=== PATIENT | female | born 1930 | race Caucasian/White ===

== ENCOUNTER 2019-09-17 09:03 | Inpatient (IN) ==
--- NOTE | 2019-09-17 09:38 | Emergency Department Note ---
SOB HPI - General Chief Complaint: Shortness of Breath/Dyspnea Stated Complaint: SOB Time Seen by Provider: 09/17/19 09:23 Source: patient, EMS Mode of arrival: EMS Limitations: no limitations - History of Present Illness This patient has had a chronic dry cough for a long time but only recently has developed shortness of breath. She said no chest pain no abdominal pain she had slight nausea this morning and slight diarrhea couple of days ago. No history of COPD or lung disease. - Related Data Home Medications Medication Instructions Recorded Confirmed peg 400-propylene glycol 0.4 %-0.3 1 drp OPHTHALMIC QDAY PRN ml 11/27/14 09/17/19 % eye drops cranberry 400 mg capsule 400 mg PO TID cap 01/02/15 09/17/19 Bifidobacterium infantis 1.5 4 mg PO QDAY 04/02/15 09/17/19 billion cell capsule sodium chloride 1 gram tablet 1 tab PO BID tab 11/29/15 09/17/19 vitamin B complex 1 tab-cap PO QDAY 02/28/16 09/17/19 vit C 250 mg-E 200 unit-zinc 40 1 tab PO BID 06/15/16 09/17/19 mg-copper 1 [id number] capsule denosumab 60 mg/mL subcutaneous 60 mg SUB-Q [id number] 11/30/16 09/17/19 syringe diphenhydrAMINE [Benadryl] 50 mg PO Q4HP PRN 09/17/19 09/17/19 Previous Rx's Medication Instructions Recorded pedi nutrition,iron,lact-free 0.06 1 each PO BID #60 dose 04/02/15 gram-1.5 kcal/mL oral liquid calcium citrate 250 mg 2 tab PO TID 30 Days #180 tab 07/06/16 calcium-vitamin D3 200 unit tablet magnesium oxide 400 mg PO QDAY #90 cap 09/01/17 cyclobenzaprine 5 mg tablet 5 mg PO BID PRN #60 tab 03/28/18 losartan 25 mg tablet 25 mg PO QDAY #30 tab 03/28/18 fentanyl 12 mcg/hr transdermal 12 mcg TOPICAL Q72H #10 patch 04/06/18 patch Allergies Allergy/AdvReac Type Severity Reaction Status Date / Time Amoxicillin [From Augmentin] Allergy Severe Swelling Verified 03/09/18 09:22 of Lip/Tongue/Throat clavulanic acid Allergy Severe Swelling Verified 03/09/18 09:22 [From Augmentin] of Lip/Tongue/Throat flaxseed Allergy Severe Swelling Verified 09/17/19 18:22 of Lip/Tongue/Throat pecan nut Allergy Severe Swelling Verified 03/09/18 09:22 of Lip/Tongue/Throat tree nut Allergy Severe Swelling Verified 09/17/19 18:22 of Lip/Tongue/Throat peanut Allergy Intermediate Rash Verified 09/17/19 09:08 polyester fibers Allergy Intermediate Rash Verified 03/09/18 09:22 wool Allergy Intermediate Rash Verified 03/09/18 09:22 [place] And Derivatives Allergy Unknown Unknown Verified 09/17/19 09:08 sodium sulfate Allergy Unknown Unknown Verified 09/17/19 09:08 Sulfa (Sulfonamide Allergy Unknown Unknown Verified 09/17/19 09:08 Antibiotics) [SULFA (SULFONAMIDE ANTIBIOTICS)] carvedilol AdvReac Intermediate Hypotension Verified 03/09/18 09:22 morphine AdvReac Intermediate Other Verified 03/09/18 09:22 prednisone AdvReac Intermediate Dizziness Verified 09/17/19 18:22 tramadol AdvReac Intermediate Dizziness Verified 03/09/18 09:22 lisinopril AdvReac Mild Cough Verified 09/17/19 18:22 milk AdvReac Mild Unknown Verified 09/17/19 18:22 FOOD PRESERVATIVE Allergy Intermediate Swelling Uncoded 03/09/18 09:22 of Lip/Tongue/Throat Review of Systems All systems ED: reviewed and negative except as stated. Past Medical History - Past Medical History [facility] Narrative: Medical History (Last Reviewed 03/09/18 @ 09:32 by Miriam Santamaria, DNP, STAMPING DIE [employer]Y OUT WORKER) Macular degeneration (Chronic ~12/2015) Closed fracture of pelvis (Chronic) Hyponatremia (Acute) Multiple food allergies (Chronic) Compression fx, lumbar spine (Chronic) Compression fracture of body of thoracic vertebra (Chronic) Allergic rhinitis (Chronic) Hypertension (Chronic) Osteoporosis (Chronic 11/28/13) Right bundle branch block (Chronic) Heart murmur, systolic (Chronic 01/25/14) Mitral regurgitation (Chronic 02/12/14) Insomnia (Chronic) Fatigue (Chronic) Dry eye syndrome (Chronic) Closed compression fracture of body of first lumbar vertebra (Chronic 10/16/13) Basal cell carcinoma of skin of face (Chronic 01/26/12) Back pain (Chronic) Anemia (Chronic) Vitamin D deficiency (Chronic) Diarrhea (Resolved) Dizziness (Resolved) Fracture, pelvis closed (Resolved) Hematuria (Resolved 02/12/14) Sacroiliitis (Resolved) Weakness (Resolved) Weakness (Resolved) Past Surgical History (Last Reviewed 03/09/18 @ 09:32 by Miriam Santamaria, BRAYDEN, STAMPING DIE [employer]Y OUT WORKER) History of appendectomy (Resolved 08/13/05) History of cataract surgery (Resolved 05/26/05) History of colonoscopy (Resolved 11/30/05) History of eye surgery (Resolved) Status post LASIK surgery of both eyes (Resolved 03/02/13) Status post Mohs surgery (Resolved 01/26/12) Family History (Last Reviewed 03/09/18 @ 09:32 by Miriam Santamaria, BRAYDEN, STAMPING [employer] OUT WORKER) Aunt Malignant neoplasm of breast [id number] Malignant neoplasm of colon Unknown Family history of malignant neoplasm Hyperlipidemia Mother Cerebrovascular accident Carcinoma in situ of skin Sister Carcinoma in situ of skin Family history of arthritis Brother Family history of arthritis Carcinoma in situ of skin - Social History smoking status: Never smoker Alcohol use: Reports: None Drug use: Reports: none Physical Exam Limitations: no limitations General appearance: alert Head: atraumatic Eye: Present: normal appearance ENT: Present: normal exam Neck: Present: normal inspection Chest: Present: normal inspection Respiratory: Present: normal lung sounds bilaterally, decreased breath sounds Cardiovascular: Present: regular rate, normal rhythm, normal heart sounds Abdominal: Present: soft. Absent: distention, tenderness Extremities: Absent: pedal edema, pretibial edema Neurological: Present: alert Psychiatric: Present: normal affect Skin: Present: warm, dry Course Vital Signs Temperature 97.5 F 09/17/19 09:08 Pulse Rate 102 H 09/17/19 09:08 Respiratory Rate 20 09/17/19 09:08 Blood Pressure 182/89 09/17/19 09:08 Pulse Oximetry (%) 94 09/17/19 09:08 Temperature 98.6 F 09/18/19 04:01 Pulse Rate 73 09/18/19 04:01 Respiratory Rate 21 09/18/19 04:01 Blood Pressure 133/61 09/18/19 04:01 Pulse Oximetry (%) 98 09/18/19 04:01 Shortness of Breath/Dyspnea - MDM Narrative Medical decision making narrative: Patient's chest x-ray was consistent with congestive heart failure and her BNP was elevated. We gave her 40 mg of Lasix IV and she did have a diuresis but we could not wean her off oxygen and so she was admitted to the hospital - Lab Data Lab results reviewed: Yes I reviewed the patient's lab results. Result diagrams: 09/17/19 19:24 09/18/19 04:34 Lab Results 09/17/19 09/17/19 09/17/19 Range/Units 09:30 09:30 09:30 WBC 10.9 (4.50-11.00) K/mcL RBC 3.94 (3.59-5.38) M/mcL Hgb 11.7 (11.2-15.7) g/dL Hct 34.7 (34.1-44.9) % MCV 88.1 (80.0-100.0) fL MCH 29.7 (26.0-34.0) pg MCHC 33.7 (31.0-36.0) g/dL RDW 11.9 (11.5-14.5) % Plt Count 155 (140-440) K/mcL MPV 9.7 (7.4-10.4) fL Gran % 80.8 H (38.0-78.0) % Lymph % (Auto) 11.6 L (15.5-49.0) % [place] % (Auto) 6.2 (1.0-12.0) % Eos % (Auto) 1.0 (0.0-7.0) % Baso % (Auto) 0.4 (0.0-2.0) % Gran # 8.81 H (1.80-8.00) K/mcL Lymph # (Auto) 1.26 L (1.50-4.80) K/mcL [place] # (Auto) 0.68 (0.10-0.90) K/mcL Eos # (Auto) 0.11 (0.00-0.70) K/mcL Baso # (Auto) 0.04 (0.00-0.30) K/mcL Sodium 125 L (133-145) mmol/L Potassium 4.4 (3.3-5.1) mmol/L Chloride 87 L (96-108) mmol/L Carbon Dioxide 24 (22-30) mmol/L Anion Gap 14.0 (8-16) BUN 15 (8-23) mg/dl Creatinine 0.9 (0.6-1.1) mg/dl GFR Calculation 57 Glucose 150 H (70-105) mg/dL Osmolality (280-300) mOSM/kg Uric Acid (2.5-8.0) mg/dL Calcium 9.3 (8.6-10.4) mg/dl Total Bilirubin 0.5 (0.0-1.0) mg/dL AST 16 (0-37) U/l ALT 9 (0-40) U/l Alkaline Phosphatase 71 (39-117) U/L Troponin T 0.05 H* (0-0.03) ng/ml NT-Pro-B Natriuret Pep 2460.0 H (0-450) pg/ml Total Protein 8.0 (5.9-8.4) gm/dL Albumin 4.0 (3.2-5.2) gm/dL Globulin 4.0 H (2.2-3.7) gm/dL Albumin/Globulin Ratio 1.0 (1.0-2.3) Urine Color Urine Appearance Urine pH (5.0-9.0) Ur Specific Adrian (1.000-1.035) Urine Protein (NEG) mg/dL Urine Glucose (UA) (NEG) mg/dL Urine Ketones (NEG) mg/dL Urine Occult Blood (<0.03) mg/dL Urine Nitrate (NEG) Urine Bilirubin (NEG) mg/dL Urine Urobilinogen (NEG) mg/dL Ur Leukocyte Esterase (NEG) /uL Urine RBC (0-1) /hpf Urine WBC (0-4) /hpf Ur Squamous Epith Cells (0-4) /hpf Urine Bacteria (0) /hpf Urine Mucus (0) /hpf Ur Culture Indicated? Urine Osmolality (80-1000) mOsm/kg Ur Random Sodium mmol/L 09/17/19 09/17/19 09/17/19 Range/Units 09:30 17:10 17:10 WBC (4.50-11.00) K/mcL RBC (3.59-5.38) M/mcL Hgb (11.2-15.7) g/dL Hct (34.1-44.9) % MCV (80.0-100.0) fL MCH (26.0-34.0) pg MCHC (31.0-36.0) g/dL RDW (11.5-14.5) % Plt Count (140-440) K/mcL MPV (7.4-10.4) fL Gran % (38.0-78.0) % Lymph % (Auto) (15.5-49.0) % [place] % (Auto) (1.0-12.0) % Eos % (Auto) (0.0-7.0) % Baso % (Auto) (0.0-2.0) % Gran # (1.80-8.00) K/mcL Lymph # (Auto) (1.50-4.80) K/mcL [place] # (Auto) (0.10-0.90) K/mcL Eos # (Auto) (0.00-0.70) K/mcL Baso # (Auto) (0.00-0.30) K/mcL Sodium (133-145) mmol/L Potassium (3.3-5.1) mmol/L Chloride (96-108) mmol/L Carbon Dioxide (22-30) mmol/L Anion Gap (8-16) BUN (8-23) mg/dl Creatinine (0.6-1.1) mg/dl GFR Calculation Glucose (70-105) mg/dL Osmolality 268 L (280-300) mOSM/kg Uric Acid 3.2 (2.5-8.0) mg/dL Calcium (8.6-10.4) mg/dl Total Bilirubin (0.0-1.0) mg/dL AST (0-37) U/l ALT (0-40) U/l Alkaline Phosphatase (39-117) U/L Troponin T (0-0.03) ng/ml NT-Pro-B Natriuret Pep (0-450) pg/ml Total Protein (5.9-8.4) gm/dL Albumin (3.2-5.2) gm/dL Globulin (2.2-3.7) gm/dL Albumin/Globulin Ratio (1.0-2.3) Urine Color Straw Urine Appearance Clear Urine pH 5.0 (5.0-9.0) Ur Specific Adrian 1.008 (1.000-1.035) Urine Protein Neg (NEG) mg/dL Urine Glucose (UA) Negative (NEG) mg/dL Urine Ketones Neg (NEG) mg/dL Urine Occult Blood Neg (<0.03) mg/dL Urine Nitrate Neg (NEG) Urine Bilirubin Neg (NEG) mg/dL Urine Urobilinogen Neg (NEG) mg/dL Ur Leukocyte Esterase Neg (NEG) /uL Urine RBC < 1 (0-1) /hpf Urine WBC 1 (0-4) /hpf Ur Squamous Epith Cells 0 (0-4) /hpf Urine Bacteria 0 (0) /hpf Urine Mucus Few (0) /hpf Ur Culture Indicated? No Urine Osmolality 344 (80-1000) mOsm/kg Ur Random Sodium 123 mmol/L - Radiology Data Radiology results reviewed: Yes I reviewed the patient's radiology results. Disposition Pt seen by TRAINING DEVELOPMENT DIRECTOR/PA only: No Clinical Impression: Congestive heart failure Disposition: Xfer As Inpt ([facility]) Condition: Fair
[2019-09-17 10:01] LABS: Basophils # (Auto) 0.04 K/mcL (0.00-0.30); Basophils % (Auto) 0.4 % (0.0-2.0); Eosinophils # (Auto) 0.11 K/mcL (0.00-0.70); Granulocytes % (Auto) 80.8 % (38.0-78.0); Hematocrit 34.7 % (34.1-44.9); Hemoglobin 11.7 g/dL (11.2-15.7); Lymphocytes # (Auto) 1.26 K/mcL (1.50-4.80); Lymphocytes % (Auto) 11.6 % (15.5-49.0); Mean Cell Volume 88.1 fL (80.0-100.0); Mean Corpuscular HGB Conc 33.7 g/dL (31.0-36.0); Mean Platelet Volume 9.7 fL (7.4-10.4); Monocytes # (Auto) 0.68 K/mcL (0.10-0.90); Monocytes % (Auto) 6.2 % (1.0-12.0); Platelet Count 155 K/mcL (140-440); RBC 3.94 M/mcL (3.59-5.38); Red Cell Distribution Width 11.9 % (11.5-14.5); WBC 10.9 K/mcL (4.50-11.00)
[2019-09-17 10:29] LABS: ALT/SGPT 9 U/l (0-40); AST/SGOT 16 U/l (0-37); Alkaline Phosphatase 71 U/L (39-117); Bilirubin,Total 0.5 mg/dL (0.0-1.0); Blood Urea Nitrogen 15 mg/dl (8-23); Calcium 9.3 mg/dl (8.6-10.4); Carbon Dioxide 24 mmol/L (22-30); Chloride 87 mmol/L (96-108); Glomerular Filtration Rate 57; Glucose 150 mg/dL (70-105)
[2019-09-17] MEDS ORDERED: FUROSEMIDE 40 MG/4 ML VIAL IV ONE (11:19)
[2019-09-17] MEDS ORDERED: ACETAMINOPHEN 325 MG TABLET PO ONE (11:20)
[2019-09-17] MEDS ORDERED: KETOROLAC 15 MG/ML VIAL IV ONE (11:20)
--- NOTE | 2019-09-17 12:13 | XRay Report ---
CLINICAL INFORMATION: SOB x3 days. COMPARISON: 09/11/2015 two view chest x-ray FINDINGS: The heart is moderately enlarged but unchanged. Mediastinum is unremarkable. The pulmonary vessels are now moderately distended with moderate interstitial edema throughout both lung perez. Possible superimposed infiltrate in right base. Small right pleural effusion noted IMPRESSION: Moderate CHF. Vague airspace disease in the right base representing either atypical edema or, less likely, superimposed infiltrate. Interpreted and Authenticated by: Nate Wilks 09/17/19
--- NOTE | 2019-09-17 16:01 | Internal Med History&Physical ---
Medical - H&P: [facility] Patient information: Note initiated : 09/17/19 at 3:59 pm Service Date, if different from initiated Date: [] Patient: Alina Lomeli a 88 y/o F admitted on for Shortness of breath. Chief Complaint: [] History of present illness: Ms. Lomeli is a 88 year old F Presents the ED with shortness of breath that started Eyal, to have a history of shortness of breath but has increased over the weekend and continue to progress. She had oxygen saturations in the mid 80s on room air in the ED. She denies any fevers or chills. No chest pain, does have some chronic abdominal pain.. She does have a cough but this is chronic and dry in nature, sometimes with congestion from sinus drainage. In the ED she was evaluated found to be in acute heart failure. With hypoxia. Sodium was also low of which she is does have a history of. Patient states that she woke up feeling normal Wednesday morning but through the day developed shortness of breath. No exacerbating or relieving factors. No new cough. No chest pain. Denies any weight gain over edema in her feet. Denies any read previous heart history. She did miss her blood pressure medication losartan today. Complained of feeling lightheadedness and did have some nausea. She does have occasional diarrhea which is normal for her. She does take salt tabs for low sodium. Review of Systems: Pertinent positives as above and headache. Denies fever/chills/vomiting/chest or abdominal pain/diarrhea. Remaining 10 point review of system reviewed negative Medical - H&P: PMH Medical history: Medical History (Last Reviewed 03/09/18 @ 09:32 by Miriam Santamaria, BRAYDEN, BELT PUNCHER) Macular degeneration (Chronic ~12/2015) Closed fracture of pelvis (Chronic) Hyponatremia (Acute) Multiple food allergies (Chronic) Compression fx, lumbar spine (Chronic) Compression fracture of body of thoracic vertebra (Chronic) Allergic rhinitis (Chronic) Hypertension (Chronic) Osteoporosis (Chronic 11/28/13) Right bundle branch block (Chronic) Heart murmur, systolic (Chronic 01/25/14) Mitral regurgitation (Chronic 02/12/14) Insomnia (Chronic) Fatigue (Chronic) Dry eye syndrome (Chronic) Closed compression fracture of body of first lumbar vertebra (Chronic 10/16/13) Basal cell carcinoma of skin of face (Chronic 01/26/12) Back pain (Chronic) Anemia (Chronic) Vitamin D deficiency (Chronic) Diarrhea (Resolved) Dizziness (Resolved) Fracture, pelvis closed (Resolved) Hematuria (Resolved 02/12/14) Sacroiliitis (Resolved) Weakness (Resolved) Weakness (Resolved) Past Surgical History (Last Reviewed 03/09/18 @ 09:32 by Miriam Santamaria, BRAYDEN, BELT PUNCHER) History of appendectomy (Resolved 08/13/05) History of cataract surgery (Resolved 05/26/05) History of colonoscopy (Resolved 11/30/05) History of eye surgery (Resolved) Status post LASIK surgery of both eyes (Resolved 03/02/13) Status post Mohs surgery (Resolved 01/26/12) Family History (Last Reviewed 03/09/18 @ 09:32 by Miriam Santamaria, BRAYDEN, BELT PUNCHER) Aunt Malignant neoplasm of breast [id number] Malignant neoplasm of colon Unknown Family history of malignant neoplasm Hyperlipidemia Mother Cerebrovascular accident Carcinoma in situ of skin Sister Carcinoma in situ of skin Family history of arthritis Brother Family history of arthritis Carcinoma in situ of skin Social History (Last Updated 03/09/18 @ 10:57 by Miriam Santamaria, BRAYDEN, BELT PUNCHER) No smoking history other than secondhand smoke exposure No alcohol use Ambulates with a cane Lives with family Medical - H&P: Meds Home Medications Medication Instructions Recorded Confirmed Type peg 400-propylene glycol 0.4 %-0.3 1 drp OPHTHALMIC QDAY PRN ml 11/27/14 09/17/19 History % eye drops cranberry 400 mg capsule 400 mg PO TID cap 01/02/15 09/17/19 History Bifidobacterium infantis 1.5 4 mg PO QDAY 04/02/15 09/17/19 History billion cell capsule pedi nutrition,iron,lact-free 0.06 1 each PO BID #60 dose 04/02/15 09/17/19 Rx gram-1.5 kcal/mL oral liquid sodium chloride 1 gram tablet 1 tab PO BID tab 11/29/15 09/17/19 History vitamin B complex 1 tab-cap PO QDAY 02/28/16 09/17/19 History vit C 250 mg-E 200 unit-zinc 40 1 tab PO BID 02/20/17 05/24/20 History mg-copper 1 [id number] capsule calcium citrate 250 mg 2 tab PO TID 30 Days #180 tab 07/06/16 09/17/19 Rx calcium-vitamin D3 200 unit tablet denosumab 60 mg/mL subcutaneous 60 mg SUB-Q [id number] 11/30/16 09/17/19 History syringe magnesium oxide 400 mg PO QDAY #90 cap 09/01/17 09/17/19 Rx cyclobenzaprine 5 mg tablet 5 mg PO BID PRN #60 tab 03/28/18 09/17/19 Rx losartan 25 mg tablet 25 mg PO QDAY #30 tab 03/28/18 09/17/19 Rx fentanyl 12 mcg/hr transdermal 12 mcg TOPICAL Q72H #10 patch 04/06/18 09/17/19 Rx patch Allergies Allergy/AdvReac Type Severity Reaction Status Date / Time Amoxicillin [From Augmentin] Allergy Severe Swelling Verified 03/09/18 09:22 of Lip/Tongue/Throat clavulanic acid Allergy Severe Swelling Verified 03/09/18 09:22 [From Augmentin] of Lip/Tongue/Throat pecan nut Allergy Severe Swelling Verified 03/09/18 09:22 of Lip/Tongue/Throat flaxseed Allergy Intermediate Swelling Verified 03/09/18 09:22 of Lip/Tongue/Throat peanut Allergy Intermediate Rash Verified 09/17/19 09:08 polyester fibers Allergy Intermediate Rash Verified 03/09/18 09:22 wool Allergy Intermediate Rash Verified 03/09/18 09:22 [place] And Derivatives Allergy Unknown Unknown Verified 09/17/19 09:08 sodium sulfate Allergy Unknown Unknown Verified 09/17/19 09:08 Sulfa (Sulfonamide Allergy Unknown Unknown Verified 09/17/19 09:08 Antibiotics) [SULFA (SULFONAMIDE ANTIBIOTICS)] tree nut Allergy Unknown Unknown Verified 09/17/19 09:08 carvedilol AdvReac Intermediate Hypotension Verified 03/09/18 09:22 morphine AdvReac Intermediate Other Verified 03/09/18 09:22 prednisone AdvReac Intermediate Dizziness Verified 03/09/18 09:22 tramadol AdvReac Intermediate Dizziness Verified 03/09/18 09:22 milk AdvReac Unknown Unknown Verified 09/17/19 09:08 FOOD PRESERVATIVE Allergy Intermediate Swelling Uncoded 03/09/18 09:22 of Lip/Tongue/Throat Medical - H&P: Exam - Constitutional Vitals: Temp Pulse Resp BP Pulse Ox 97.5 F 75 35 H 150/82 91 09/17/19 09:08 09/17/19 15:46 09/17/19 15:46 09/17/19 15:46 09/17/19 15:46 Exam: General: Alert, Awake, No acute Distress Eyes/N/T: EOMI, PERRL, Head/Neck: neck supple, normocephalic atraumatic, JVD CV: RRR, 3/6 SM, normal s1/s2 Pulm: b/l rales, no wheezing Abd: soft, nontender, +BS x4 Ext: no clubbing/cyanosis/edema Neuro: Alert, no focal deficits, moves all extremities, CN 2-12 grossly intact, symmetrical strength b/l upper/lower, sensations intact b/l upper/lower Skin: warm/dry Medical - H&P: Reslt - Labs CBC & Chem 7: 09/17/19 09:30 09/17/19 09:30 Labs: Short CBC 09/17/19 Range/Units 09:30 WBC 10.9 (4.50-11.00) K/mcL Hgb 11.7 (11.2-15.7) g/dL Hct 34.7 (34.1-44.9) % Plt Count 155 (140-440) K/mcL BMP 09/17/19 09:30 Sodium 125 L Potassium 4.4 Chloride 87 L Carbon Dioxide 24 BUN 15 Creatinine 0.9 Glucose 150 H Calcium 9.3 Cardiac Enzymes 09/17/19 Range/Units 09:30 Troponin T 0.05 H* (0-0.03) ng/ml Liver Function 09/17/19 Range/Units 09:30 Total Bilirubin 0.5 (0.0-1.0) mg/dL AST 16 (0-37) U/l ALT 9 (0-40) U/l Alkaline Phosphatase 71 (39-117) U/L Albumin 4.0 (3.2-5.2) gm/dL Medical - H&P: A/P - Narrative A/P Narrative: A: *Acute on chronic decompensated diastolic(per 2018 echo) CHF: -trop 0.05 2/2 above, no chest pain or ischemic changes on ekg *Acute hypoxic respiratory failure: 2/2 above - *Hyponatremia, acute on chronic: Acute component likely hypervolemic 2/2 above -has been on salt tabs at home *Chronic pain: On fentanyl and Flexeril at home *HTN: On losartan * P: -IV Lasix -Supplemental O2 -Continue home ARB, start BB when euvolemic -Echo pending - -PT/OT -Follow-up with cardiology outpatient -ppx: Lovenox DNR
[2019-09-17 17:29] LABS: Uric Acid 3.2 mg/dL (2.5-8.0)
[2019-09-17 18:08] LABS: Appearance,Urine CLEAR; Bacteria,Urine 0 /hpf (0); Bilirubin,Urine NEG (NEG); Color,Urine STRAW; Culture Indicated,Urine NO; Glucose,Urine (UA) NEGATIVE (NEG); Ketones,Urine NEG (NEG); Leukocyte Esterase,Urine NEG /uL (NEG); Mucus,Urine FEW /hpf (0); Nitrate,Urine NEG (NEG); Protein,Urine NEG (NEG); Specific Gravity,Urine 1.008 (1.000-1.035); Urine Blood NEG mg/dL (<0.03); Urine RBC < 1 /hpf (0-1); Urine Squamous Epithelial Cell 0 /hpf (0-4); Urine WBC 1 /hpf (0-4); Urobilinogen,Urine NEG (NEG)
[2019-09-17] MEDS ORDERED: SENNOSIDES 1 TABLET PO PRN (18:12)
[2019-09-17] MEDS ORDERED: POLYETHYLENE GLYCOL 3350 17 GM PACKET PO PRN (18:12)
[2019-09-17] MEDS ORDERED: MAGNESIUM SULFATE 2 GM/50 ML BAG IV PRN (18:12)
[2019-09-17] MEDS ORDERED: POTASSIUM CHLORIDE 20 MEQ TABLET PO PRN ×2 (18:12)
[2019-09-17] MEDS ORDERED: POTASSIUM CHLORIDE 40 MEQ in DEXTROSE 5% IN WATER 500 ML IV PRN (18:12)
[2019-09-17] MEDS ORDERED: fentaNYL 12 MCG PATCH TOPICAL SCH (18:12)
[2019-09-17] MEDS ORDERED: NITROGLYCERIN 1 GM OINT.TOP TD ONE (18:12)
[2019-09-17] MEDS ORDERED: ONDANSETRON 4 MG/2 ML VIAL IV PRN (18:12)
[2019-09-17] MEDS ORDERED: IPRATROPIUM/ALBUTEROL 3 ML AMPUL.NEB NEB PRN (18:12)
[2019-09-17 18:18] LABS: Osmolality,Urine 344 mOsm/kg (80-1000); Sodium, Urine Random 123 mmol/L
[2019-09-17] MEDS: FUROSEMIDE 40 MG/4 ML VIAL IV SCH (19:43)
[2019-09-17 20:14] LABS: Basophils # (Auto) 0.01 K/mcL (0.00-0.30); Basophils % (Auto) 0.1 % (0.0-2.0); Eosinophils # (Auto) 0.03 K/mcL (0.00-0.70); Eosinophils % (Auto) 0.2 % (0.0-7.0); Granulocytes % (Auto) 80.9 % (38.0-78.0); Hematocrit 36.4 % (34.1-44.9); Hemoglobin 12.3 g/dL (11.2-15.7); Lymphocytes # (Auto) 1.49 K/mcL (1.50-4.80); Lymphocytes % (Auto) 11.9 % (15.5-49.0); Mean Cell Volume 87.7 fL (80.0-100.0); Mean Corpuscular HGB Conc 33.8 g/dL (31.0-36.0); Mean Platelet Volume 9.6 fL (7.4-10.4); Monocytes # (Auto) 0.87 K/mcL (0.10-0.90); Monocytes % (Auto) 6.9 % (1.0-12.0); Platelet Count 195 K/mcL (140-440); RBC 4.15 M/mcL (3.59-5.38); Red Cell Distribution Width 11.9 % (11.5-14.5); WBC 12.6 K/mcL (4.50-11.00)
[2019-09-17] MEDS: 0.9 % SODIUM CHLORIDE 10 ML SYRINGE IV SCH (21:13)
[2019-09-18] MEDS: 0.9 % SODIUM CHLORIDE 10 ML SYRINGE IV SCH ×3 (05:39→20:27)
[2019-09-18 06:32] LABS: ALT/SGPT 8 U/l (0-40); AST/SGOT 16 U/l (0-37); Albumin 3.7 gm/dL (3.2-5.2); Albumin/Globulin Ratio 1.1 (1.0-2.3); Alkaline Phosphatase 61 U/L (39-117); Bilirubin,Direct < 0.2 mg/dL (0.0-0.3); Bilirubin,Total 0.7 mg/dL (0.0-1.0); Blood Urea Nitrogen 15 mg/dl (8-23); Calcium 8.4 mg/dl (8.6-10.4); Carbon Dioxide 27 mmol/L (22-30); Globulin 3.3 gm/dL (2.2-3.7); Glomerular Filtration Rate 57; Glucose 100 mg/dL (70-105); Lactate Dehydrogenase 173 U/L (94-250); Triglycerides 80 mg/dl (<150); Uric Acid 4.1 mg/dL (2.5-8.0)
[2019-09-18 06:35] LABS: Chloride 82 mmol/L (96-108)
[2019-09-18] MEDS ORDERED: SODIUM CHLORIDE 1 GM TABLET PO ONE ×2 (08:16→20:27)
--- NOTE | 2019-09-18 08:20 | Internal Med Progress Note ---
Medical - PN: Subj Patient information: Note initiated : 09/18/19 at 8:13 am Service Date, if different from initiated Date: [] Patient: Alina Lomeli a 88 y/o F admitted on 09/17/19 for Shortness of breath. Chief Complaint: [] Interval history: Ms. Lomeli is a 88 year old F Presents the ED with shortness of breath that started Wednesday, to have a history of shortness of breath but has increased over the weekend and continue to progress. She had oxygen saturations in the mid 80s on room air in the ED. She denies any fevers or chills. No chest pain, does have some chronic abdominal pain.. She does have a cough but this is chronic and dry in nature, sometimes with congestion from sinus drainage. In the ED she was evaluated found to be in acute heart failure. With hypoxia. Sodium was also low of which she is does have a history of. Patient states that she woke up feeling normal Wednesday morning but through the day developed shortness of breath. No exacerbating or relieving factors. No new cough. No chest pain. Denies any weight gain over edema in her feet. Denies any read previous heart history. She did miss her blood pressure medication losartan today. Complained of feeling lightheadedness and did have some nausea. She does have occasional diarrhea which is normal for her. She does take salt tabs for low sodium. 5/25 Good oxygen saturations on supplemental O2. Plan for echo today. Shortness of breath much improved from yesterday. Chronic cough. Little bit of a headache and some lightheadedness otherwise no other complaints. Review of Systems: denies fever/chills/nausea/vomiting/chest or abdominal pain/diarrhea. Otherwise see above. - Constitutional Vitals: Vital Signs Temp Pulse Resp BP Pulse Ox 98.6 F 73 21 133/61 98 09/18/19 04:01 09/18/19 04:01 09/18/19 04:01 09/18/19 04:01 09/18/19 04:01 Period Temp Pulse Resp BP Sys/Meyer Pulse Ox Last 24 Hr 97.5 F-98.8 F 71-102 18-42 118-188/50-135 86-98 Intake and Output 09/17/19 09/18/19 09/18/19 21:59 05:59 13:59 Intake Total 200 Output Total 400 1175 Balance -200 -1175 Weight 68.039 kg Intake & Output: Intake & Output 09/17/19 09/18/19 09/18/19 21:59 05:59 13:59 Intake Total 200 Output Total 400 1175 Balance -200 -1175 Weight 68.039 kg Intake: Oral 200 Output: Void Amount 400 1175 Other: Urine Appearance Clear Urine Color Straw Exam: General: Alert, Awake, No acute Distress Eyes/N/T: EOMI, , Head/Neck: neck supple, CV: RRR, 3/6 SM, Pulm: b/l rales improving, a few scattered wheezes Abd: soft, nontender, +BS x4 Ext: no clubbing/cyanosis/edema Neuro: Alert, no focal deficits, moves all extremities, Skin: warm/dry Medical - PN: Obj Da - Labs CBC & Chem 7: 09/17/19 19:24 09/18/19 04:34 Labs: Abnormal Lab Results 09/18/19 09/18/19 09/17/19 04:34 04:33 19:24 WBC 12.6 H Gran % 80.9 H Lymph % (Auto) 11.9 L Gran # 10.17 H Lymph # (Auto) 1.49 L Sodium 123 L Chloride 82 L Glucose Osmolality Calcium 8.4 L Troponin T NT-Pro-B Natriuret Pep 8336.0 H Globulin 09/17/19 09/17/19 09/17/19 09:30 09:30 09:30 WBC Gran % Lymph % (Auto) Gran # Lymph # (Auto) Sodium 125 L Chloride 87 L Glucose 150 H Osmolality 268 L Calcium Troponin T 0.05 H* NT-Pro-B Natriuret Pep 2460.0 H Globulin 4.0 H 09/17/19 09:30 WBC Gran % 80.8 H Lymph % (Auto) 11.6 L Gran # 8.81 H Lymph # (Auto) 1.26 L Sodium Chloride Glucose Osmolality Calcium Troponin T NT-Pro-B Natriuret Pep Globulin Meds: Medications Albuterol/Ipratropium (Duoneb) 3 ml NEB Q4HP PRN PRN Reason: Shortness Of Breath Cyclobenzaprine HCl (Flexeril) 5 mg PO BIDP PRN PRN Reason: muscle spasm Enoxaparin Sodium (Lovenox) 40 mg SQ DAILY [facility] Fentanyl (Duragesic) 12 mcg TOPICAL Q72H [facility] Last Admin: 09/17/19 20:00 Dose: Not Given Documented by: Furosemide (Lasix) 40 mg IV BIDD [facility] Last Admin: 09/17/19 19:43 Dose: 40 mg Documented by: Potassium Chloride 40 meq/ (Dextrose) 520 mls @ 130 mls/hr IV UD PRN PRN Reason: Potassium < 3 Magnesium Sulfate (Magnesium Sulfate) 2 gm in 50 mls @ 50 mls/hr IV UD PRN PRN Reason: Magnesium </= 1.6 Losartan Potassium (Cozaar) 25 mg PO QDAY [facility] Ondansetron HCl (Zofran) 4 mg IV Q4HP PRN PRN Reason: Nausea And Vomiting Polyethylene Glycol (Miralax) 17 gm PO DAILYP PRN PRN Reason: Constipation Potassium Chloride (Kdur) 40 meq PO UD PRN PRN Reason: Potssium is 3-3.5 Potassium Chloride (Kdur) 40 meq PO UD PRN PRN Reason: Potassium < 3 Senna (Senokot) 2 tab PO DAILYP PRN PRN Reason: Constipation Sodium Chloride (Saline Flush) 10 ml IV Q8 [facility] Last Admin: 09/18/19 05:39 Dose: 10 ml Documented by: Medical - PN: A/P - Time Spent With Patient Total time spent is greater than 50% in coordination of care (as documented) at patient's floor/unit and/or counseling patient: - Narrative A/P Narrative: A: *Acute on chronic decompensated diastolic(per 2018 echo) CHF: -trop 0.05 2/2 above & follow-up lab wnl, no chest pain or ischemic changes on ekg *Acute hypoxic respiratory failure: 2/2 above - *Hyponatremia, acute on chronic siadh: Acute component likely hypervolemic 2/2 above -has been on salt tabs at home *Chronic pain: On fentanyl and Flexeril at home *HTN: On losartan * P: -IV Lasix -Supplemental O2 -Continue home ARB, start BB when euvolemic -Echo pending -free water fluid restrict -PT/OT -Follow-up with cardiology outpatient -ppx: Lovenox DNR Medical - PN: Qual - VTE Deep Vein Thrombosis/Pulmonary Embolism Present on Admission: No
[2019-09-18] MEDS: FUROSEMIDE 40 MG/4 ML VIAL IV SCH ×2 (09:00→17:06)
[2019-09-18] MEDS: LOSARTAN 25 MG TABLET PO SCH (09:57)
[2019-09-18] MEDS: ENOXAPARIN 40 MG/0.4 ML SYRINGE SQ SCH (09:57)
[2019-09-18 11:31] LABS: Eosinophils % (Manual) 3 % (0-7); Lymphocytes % 26 % (15-49); Monocytes % (Manual) 9 % (1-12); Platelet Estimate NORMAL (NORMAL); RBC Morphology NORMAL (NORMAL); Segmented Neutrophils % 62 % (38-78)
[2019-09-18] MEDS: fentaNYL 12 MCG PATCH TOPICAL SCH (11:58)
[2019-09-18] MEDS: CYCLOBENZAPRINE 10 MG TABLET PO PRN ×2 (11:58→20:27)
[2019-09-18] MEDS: SODIUM CHLORIDE 1 GM TABLET PO SCH ×3 (12:19→20:27)
--- NOTE | 2019-09-18 14:55 | XRay Report ---
HISTORY: Follow-up congestive heart failure FINDINGS: The heart is within upper limits of normal in size. There are widespread alveolar opacities throughout both lungs with the greatest involvement in the lower lobes. There may be small bilateral pleural effusions. There is no apparent mass or lobar consolidation. Patient has old compression fractures in the midthoracic spine. 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 Comparison with the prior exam from 09/17/19 shows the heart is slightly smaller and the alveolar opacities are improving. IMPRESSION: Improving infiltrates in both lungs which could be due to congestive heart failure with pulmonary edema, pneumonia or combination of the two. Interpreted and Authenticated by: Vish Ortiz 09/18/19
[2019-09-19] MEDS: 0.9 % SODIUM CHLORIDE 10 ML SYRINGE IV SCH ×3 (05:50→20:04)
--- NOTE | 2019-09-19 07:53 | Internal Med Progress Note ---
Medical - PN: Subj Patient information: Note initiated : 09/19/19 at 7:50 am Service Date, if different from initiated Date: [] Patient: Alina Lomeli a 88 y/o F admitted on 09/17/19 for Shortness of breath. Chief Complaint: [] Interval history: Ms. Lomeli is a 88 year old F Presents the ED with shortness of breath that started Wednesday, to have a history of shortness of breath but has increased over the weekend and continue to progress. She had oxygen saturations in the mid 80s on room air in the ED. She denies any fevers or chills. No chest pain, does have some chronic abdominal pain.. She does have a cough but this is chronic and dry in nature, sometimes with congestion from sinus drainage. In the ED she was evaluated found to be in acute heart failure. With hypoxia. Sodium was also low of which she is does have a history of. Patient states that she woke up feeling normal Wednesday morning but through the day developed shortness of breath. No exacerbating or relieving factors. No new cough. No chest pain. Denies any weight gain over edema in her feet. Denies any read previous heart history. She did miss her blood pressure medication losartan today. Complained of feeling lightheadedness and did have some nausea. She does have occasional diarrhea which is normal for her. She does take salt tabs for low sodium. 09/17 Good oxygen saturations on supplemental O2. Plan for echo today. Shortness of breath much improved from yesterday. Chronic cough. Little bit of a headache and some lightheadedness otherwise no other complaints. 09/18 Still requiring oxygen, was increased last night with the patient does say the oxygen had come off her nose for period of time. That negative fluid balance several liters. Echo is also pending. Patient has usual morning cough today. She denies shortness of breath. Review of Systems: denies fever/chills/nausea/vomiting/chest or abdominal pain/diarrhea. Otherwise see above. - Constitutional Vitals: Vital Signs Temp Pulse Resp BP Pulse Ox 98.5 F 80 21 101/51 93 09/19/19 00:01 09/18/19 11:01 09/19/19 06:01 09/19/19 06:01 09/19/19 06:01 Period Temp Pulse Resp BP Sys/Meyer Pulse Ox Last 24 Hr 97.9 F-98.7 F 74-80 16-36 72-165/42-86 88-99 Intake and Output 09/18/19 09/19/19 09/19/19 21:59 05:59 13:59 Intake Total 240 Output Total 250 Balance -10 Weight 66.814 kg Intake & Output: Intake & Output 09/18/19 09/19/19 09/19/19 21:59 05:59 13:59 Intake Total 240 Output Total 250 Balance -10 Weight 66.814 kg Intake: Oral 240 Output: Void Amount 250 Other: Meal Dinner Percent of Meal Consumed 75% Feeding Ability Independent Urine Appearance Clear Urine Color Bright Yellow Urine Odor Normal Stool Size Moderate Stool Color Brown Stool Consistency Soft Formed Exam: General: Alert, Awake, No acute Distress Eyes/N/T: EOMI, , Head/Neck: neck supple, CV: RRR, 3/6 SM, Pulm: b/l basilar rales, no wheezing Abd: soft, nontender, +BS x4 Ext: no clubbing/cyanosis/edema Neuro: Alert, no focal deficits, moves all extremities, Skin: warm/dry Medical - PN: Obj Da - Labs CBC & Chem 7: 09/17/19 19:24 09/18/19 04:34 Labs: Abnormal Lab Results 09/18/19 09/18/19 09/18/19 04:34 04:33 04:33 WBC Gran % Lymph % (Auto) Gran # Lymph # (Auto) Sodium 123 L Chloride 82 L Glucose Osmolality Calcium 8.4 L Troponin T C-Reactive Protein 3.6 H NT-Pro-B Natriuret Pep 8336.0 H Globulin 09/17/19 09/17/19 09/17/19 19:24 09:30 09:30 WBC 12.6 H Gran % 80.9 H Lymph % (Auto) 11.9 L Gran # 10.17 H Lymph # (Auto) 1.49 L Sodium Chloride Glucose Osmolality 268 L Calcium Troponin T 0.05 H* C-Reactive Protein NT-Pro-B Natriuret Pep Globulin 09/17/19 09/17/19 09:30 09:30 WBC Gran % 80.8 H Lymph % (Auto) 11.6 L Gran # 8.81 H Lymph # (Auto) 1.26 L Sodium 125 L Chloride 87 L Glucose 150 H Osmolality Calcium Troponin T C-Reactive Protein NT-Pro-B Natriuret Pep 2460.0 H Globulin 4.0 H Meds: Medications Albuterol/Ipratropium (Duoneb) 3 ml NEB Q4HP PRN PRN Reason: Shortness Of Breath Cyclobenzaprine HCl (Flexeril) 5 mg PO BIDP PRN PRN Reason: muscle spasm Last Admin: 09/18/19 20:27 Dose: 5 mg Documented by: Enoxaparin Sodium (Lovenox) 40 mg SQ DAILY [facility] Last Admin: 09/18/19 09:57 Dose: 40 mg Documented by: Fentanyl (Duragesic) 12 mcg TOPICAL Q72H [facility] Last Admin: 09/18/19 11:58 Dose: 12 mcg Documented by: Furosemide (Lasix) 40 mg IV BIDD [facility] Last Admin: 09/18/19 17:06 Dose: 40 mg Documented by: Potassium Chloride 40 meq/ (Dextrose) 520 mls @ 130 mls/hr IV UD PRN PRN Reason: Potassium < 3 Magnesium Sulfate (Magnesium Sulfate) 2 gm in 50 mls @ 50 mls/hr IV UD PRN PRN Reason: Magnesium </= 1.6 Last Infusion: 09/18/19 11:25 Dose: Infused Documented by: Losartan Potassium (Cozaar) 25 mg PO QDAY [facility] Last Admin: 09/18/19 09:57 Dose: 25 mg Documented by: Ondansetron HCl (Zofran) 4 mg IV Q4HP PRN PRN Reason: Nausea And Vomiting Polyethylene Glycol (Miralax) 17 gm PO DAILYP PRN PRN Reason: Constipation Potassium Chloride (Kdur) 40 meq PO UD PRN PRN Reason: Potssium is 3-3.5 Potassium Chloride (Kdur) 40 meq PO UD PRN PRN Reason: Potassium < 3 Senna (Senokot) 2 tab PO DAILYP PRN PRN Reason: Constipation Sodium Chloride (Saline Flush) 10 ml IV Q8 [facility] Last Admin: 09/19/19 05:50 Dose: 10 ml Documented by: Sodium Chloride (Sodium Chloride) 1 gm PO TID [facility] Last Admin: 09/18/19 20:27 Dose: 1 gm Documented by: Medical - PN: A/P - Time Spent With Patient Total time spent is greater than 50% in coordination of care (as documented) at patient's floor/unit and/or counseling patient: - Narrative A/P Narrative: A: *Acute on chronic decompensated diastolic(per 2018 echo) CHF: -trop 0.05 2/2 above & follow-up lab wnl, no chest pain or ischemic changes on ekg *Acute hypoxic respiratory failure: 2/2 above -on 1-2L's, but increased need last night *Hyponatremia, acute on chronic siadh: Acute component likely hypervolemic 2/2 above -has been on salt tabs at home *Chronic pain: On fentanyl and Flexeril at home *HTN: On losartan * P: -IV Lasix -Supplemental O2 -Continue home ARB, start BB when euvolemic -Echo pending -free water fluid restrict -PT/OT -Follow-up with cardiology outpatient -ppx: Lovenox DNR Medical - PN: Qual - VTE Deep Vein Thrombosis/Pulmonary Embolism Present on Admission: No
[2019-09-19] MEDS: FUROSEMIDE 40 MG/4 ML VIAL IV SCH (08:00)
[2019-09-19 08:57] LABS: Basophils # (Auto) 0.07 K/mcL (0.00-0.30); Basophils % (Auto) 0.8 % (0.0-2.0); Eosinophils # (Auto) 0.66 K/mcL (0.00-0.70); Eosinophils % (Auto) 7.6 % (0.0-7.0); Granulocytes % (Auto) 57.9 % (38.0-78.0); Hematocrit 34.6 % (34.1-44.9); Hemoglobin 11.7 g/dL (11.2-15.7); Lymphocytes % (Auto) 23.1 % (15.5-49.0); Mean Cell Volume 88.5 fL (80.0-100.0); Mean Corpuscular HGB Conc 33.8 g/dL (31.0-36.0); Mean Platelet Volume 9.6 fL (7.4-10.4); Monocytes # (Auto) 0.92 K/mcL (0.10-0.90); Monocytes % (Auto) 10.6 % (1.0-12.0); Platelet Count 190 K/mcL (140-440); RBC 3.91 M/mcL (3.59-5.38); Red Cell Distribution Width 12.1 % (11.5-14.5); WBC 8.7 K/mcL (4.50-11.00)
[2019-09-19 09:12] LABS: ALT/SGPT 10 U/l (0-40); AST/SGOT 18 U/l (0-37); Albumin 3.9 gm/dL (3.2-5.2); Albumin/Globulin Ratio 1.1 (1.0-2.3); Alkaline Phosphatase 64 U/L (39-117); Bilirubin,Direct < 0.2 mg/dL (0.0-0.3); Bilirubin,Total 0.5 mg/dL (0.0-1.0); Calcium 8.5 mg/dl (8.6-10.4); Carbon Dioxide 28 mmol/L (22-30); Globulin 3.4 gm/dL (2.2-3.7); Glucose 86 mg/dL (70-105); Lactate Dehydrogenase 165 U/L (94-250); Phosphorous 3.3 mg/dL (2.7-4.5); Triglycerides 87 mg/dl (<150); Uric Acid 6.3 mg/dL (2.5-8.0)
[2019-09-19 09:13] LABS: Blood Urea Nitrogen 32 mg/dl (8-23); Chloride 83 mmol/L (96-108); Glomerular Filtration Rate 34
[2019-09-19] MEDS: LOSARTAN 25 MG TABLET PO SCH (09:57)
[2019-09-19] MEDS: ENOXAPARIN 40 MG/0.4 ML SYRINGE SQ SCH (09:57)
[2019-09-19] MEDS: SODIUM CHLORIDE 1 GM TABLET PO SCH ×3 (09:57→20:03)
[2019-09-19] MEDS: CYCLOBENZAPRINE 10 MG TABLET PO PRN ×2 (09:57→20:03)
--- NOTE | 2019-09-19 11:13 | XRay Report ---
HISTORY: Short of breath pulmonary edema pleural effusions FINDINGS: Widespread alveolar opacities are present in both lungs with the greatest consolidation in the right lung base. Lung volumes are normal. The heart size is normal. There might be a small subpulmonic pleural effusion on the right side. Comparison with the prior exams shows gradual improvement of the congestive heart failure since 09/17/19. IMPRESSION: Slowly improving bilateral alveolar opacities. This is probably due to pulmonary edema. However, superimposed pneumonia cannot be excluded. Interpreted and Authenticated by: Vish Ortiz 09/19/19
--- NOTE | 2019-09-19 12:30 | Ultrasound Report ---
History: Shortness of breath, pleural effusions FINDINGS: There are small pockets of pleural fluid posteriorly in both left and right lower thorax. On the left side, the pocket of fluid measures 1.8 x 2.3 cm and on the right side it measures 6.3 x 6.9 cm. IMPRESSION: Very small bilateral pleural effusions. There is not enough fluid on either side to justify a therapeutic thoracentesis. Interpreted and Authenticated by: Vish Ortiz 09/19/19
[2019-09-20] MEDS: 0.9 % SODIUM CHLORIDE 10 ML SYRINGE IV SCH ×3 (04:22→20:21)
[2019-09-20 06:43] LABS: ALT/SGPT 11 U/l (0-40); AST/SGOT 18 U/l (0-37); Albumin 3.6 gm/dL (3.2-5.2); Albumin/Globulin Ratio 1.1 (1.0-2.3); Alkaline Phosphatase 61 U/L (39-117); Bilirubin,Direct < 0.2 mg/dL (0.0-0.3); Bilirubin,Total 0.4 mg/dL (0.0-1.0); Calcium 8.1 mg/dl (8.6-10.4); Carbon Dioxide 27 mmol/L (22-30); Globulin 3.4 gm/dL (2.2-3.7); Glomerular Filtration Rate 41; Glucose 98 mg/dL (70-105); Lactate Dehydrogenase 179 U/L (94-250); Phosphorous 3.6 mg/dL (2.7-4.5); Triglycerides 91 mg/dl (<150); Uric Acid 7.1 mg/dL (2.5-8.0)
[2019-09-20 06:44] LABS: Blood Urea Nitrogen 41 mg/dl (8-23); Chloride 84 mmol/L (96-108)
--- NOTE | 2019-09-20 07:56 | Internal Med Progress Note ---
Medical - PN: Subj Patient information: Note initiated : 09/20/19 at 7:46 am Service Date, if different from initiated Date: [] Patient: Alina Lomeli a 88 y/o F admitted on 09/17/19 for Shortness of breath. Chief Complaint: [] Interval history: Ms. Lomeli is a 88 year old F Presents the ED with shortness of breath that started Wednesday, to have a history of shortness of breath but has increased over the weekend and continue to progress. She had oxygen saturations in the mid 80s on room air in the ED. She denies any fevers or chills. No chest pain, does have some chronic abdominal pain.. She does have a cough but this is chronic and dry in nature, sometimes with congestion from sinus drainage. In the ED she was evaluated found to be in acute heart failure. With hypoxia. Sodium was also low of which she is does have a history of. Patient states that she woke up feeling normal Wednesday morning but through the day developed shortness of breath. No exacerbating or relieving factors. No new cough. No chest pain. Denies any weight gain over edema in her feet. Denies any read previous heart history. She did miss her blood pressure medication losartan today. Complained of feeling lightheadedness and did have some nausea. She does have occasional diarrhea which is normal for her. She does take salt tabs for low sodium. 09/17 Good oxygen saturations on supplemental O2. Plan for echo today. Shortness of breath much improved from yesterday. Chronic cough. Little bit of a headache and some lightheadedness otherwise no other complaints. 09/18 Still requiring oxygen, was increased last night with the patient does say the oxygen had come off her nose for period of time. That negative fluid balance several liters. Echo is also pending. Patient has usual morning cough today. She denies shortness of breath. 09/19 Sodium remaining mid 20s. Patient on room air yesterday was placed on 1 L overnight for a while and now back on room air. Patient doing well. Echo showing severe aortic stenosis. Patient will need for close follow-up with cardiology, not sure if she is surgical candidate sounds like she might not want to go through that even if she was. Review of Systems: denies fever/chills/nausea/vomiting/chest or abdominal pain/diarrhea. Otherwise see above. - Constitutional Vitals: Vital Signs Temp Pulse Resp BP Pulse Ox 98.2 F 82 20 112/58 94 09/20/19 02:00 09/20/19 02:00 09/20/19 06:06 09/20/19 06:01 09/20/19 06:06 Period Temp Pulse Resp BP Sys/Meyer Pulse Ox Last 24 Hr 97.9 F-98.7 F 76-96 16-33 83-147/46-82 87-97 Intake and Output 09/19/19 09/20/19 09/20/19 21:59 05:59 13:59 Intake Total 360 300 Output Total 1400 125 150 Balance -1040 175 -150 Weight 66.996 kg Intake & Output: Intake & Output 09/19/19 09/20/19 09/20/19 21:59 05:59 13:59 Intake Total 360 300 Output Total 1400 125 150 Balance -1040 175 -150 Weight 66.996 kg Intake: Oral 0 GI Tube Flush 360 300 Output: Void Amount 1400 125 150 Other: Meal Dinner Percent of Meal Consumed 100% Feeding Ability Independent Urine Appearance Clear Clear Clear Urine Color Bright Yellow Pale Pale Urine Odor Normal Normal Stool Size Small Small Stool Color Brown Brown Stool Consistency Soft Soft Formed Formed # Voids 1 # Bowel Movements 1 Exam: General: Alert, Awake, No acute Distress Eyes/N/T: EOMI, , Head/Neck: neck supple, CV: RRR, 3/6 SM, Pulm: b/l basilar rales improved, no wheezing Abd: soft, nontender, +BS x4 Ext: no clubbing/cyanosis/edema Neuro: Alert, no focal deficits, moves all extremities, Skin: warm/dry Medical - PN: Obj Da - Labs CBC & Chem 7: 09/19/19 08:06 09/20/19 05:10 Labs: Abnormal Lab Results 09/20/19 09/19/19 09/19/19 05:10 08:06 08:06 WBC Gran % Lymph % (Auto) Eos % (Auto) 7.6 H Gran # Lymph # (Auto) Hand # (Auto) 0.92 H Sodium 123 L 125 L Chloride 84 L 83 L BUN 41 H 32 H Creatinine 1.2 H 1.4 H Glucose Osmolality Calcium 8.1 L 8.5 L Troponin T C-Reactive Protein 3.0 H NT-Pro-B Natriuret Pep Globulin 09/18/19 09/18/19 09/18/19 04:34 04:33 04:33 WBC Gran % Lymph % (Auto) Eos % (Auto) Gran # Lymph # (Auto) Hand # (Auto) Sodium 123 L Chloride 82 L BUN Creatinine Glucose Osmolality Calcium 8.4 L Troponin T C-Reactive Protein 3.6 H NT-Pro-B Natriuret Pep 8336.0 H Globulin 09/17/19 09/17/19 09/17/19 19:24 09:30 09:30 WBC 12.6 H Gran % 80.9 H Lymph % (Auto) 11.9 L Eos % (Auto) Gran # 10.17 H Lymph # (Auto) 1.49 L Hand # (Auto) Sodium Chloride BUN Creatinine Glucose Osmolality 268 L Calcium Troponin T 0.05 H* C-Reactive Protein NT-Pro-B Natriuret Pep Globulin 09/17/19 09/17/19 09:30 09:30 WBC Gran % 80.8 H Lymph % (Auto) 11.6 L Eos % (Auto) Gran # 8.81 H Lymph # (Auto) 1.26 L Hand # (Auto) Sodium 125 L Chloride 87 L BUN Creatinine Glucose 150 H Osmolality Calcium Troponin T C-Reactive Protein NT-Pro-B Natriuret Pep 2460.0 H Globulin 4.0 H Meds: Medications Albuterol/Ipratropium (Duoneb) 3 ml NEB Q4HP PRN PRN Reason: Shortness Of Breath Cyclobenzaprine HCl (Flexeril) 5 mg PO BIDP PRN PRN Reason: muscle spasm Last Admin: 09/19/19 20:03 Dose: 5 mg Documented by: Enoxaparin Sodium (Lovenox) 40 mg SQ DAILY [facility] Last Admin: 09/19/19 09:57 Dose: 40 mg Documented by: Fentanyl (Duragesic) 12 mcg TOPICAL Q72H [facility] Last Admin: 09/18/19 11:58 Dose: 12 mcg Documented by: Potassium Chloride 40 meq/ (Dextrose) 520 mls @ 130 mls/hr IV UD PRN PRN Reason: Potassium < 3 Magnesium Sulfate (Magnesium Sulfate) 2 gm in 50 mls @ 50 mls/hr IV UD PRN PRN Reason: Magnesium </= 1.6 Last Infusion: 09/18/19 11:25 Dose: Infused Documented by: Losartan Potassium (Cozaar) 25 mg PO QDAY [facility] Last Admin: 09/19/19 09:57 Dose: 25 mg Documented by: Ondansetron HCl (Zofran) 4 mg IV Q4HP PRN PRN Reason: Nausea And Vomiting Polyethylene Glycol (Miralax) 17 gm PO DAILYP PRN PRN Reason: Constipation Potassium Chloride (Kdur) 40 meq PO UD PRN PRN Reason: Potssium is 3-3.5 Potassium Chloride (Kdur) 40 meq PO UD PRN PRN Reason: Potassium < 3 Senna (Senokot) 2 tab PO DAILYP PRN PRN Reason: Constipation Sodium Chloride (Saline Flush) 10 ml IV Q8 [facility] Last Admin: 09/20/19 04:22 Dose: 10 ml Documented by: Sodium Chloride (Sodium Chloride) 1 gm PO TID [facility] Last Admin: 09/19/19 20:03 Dose: 1 gm Documented by: Medical - PN: A/P - Time Spent With Patient Total time spent is greater than 50% in coordination of care (as documented) at patient's floor/unit and/or counseling patient: - Narrative A/P Narrative: A: *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 ): -trop 0.05 2/2 above & follow-up lab wnl, no chest pain or ischemic changes on ekg -echo with good EF, severe , diastolic dysfxn *Acute hypoxic respiratory failure: 2/2 above -on 1L while sleeping *Severe Aortic Stenosis: *Hyponatremia, acute on chronic siadh: -has been on salt tabs at home *Chronic pain: On fentanyl and Flexeril at home *HTN: On losartan * P: -IV Lasix held for now -Supplemental O2 prn -hold ARB until renal fxn improved, -free water fluid restrict -check Cortisol and TSH -f/u sodium -PT/OT -Follow-up with cardiology outpatient -ppx: Lovenox DNR Medical - PN: Qual - VTE Deep Vein Thrombosis/Pulmonary Embolism Present on Admission: No
[2019-09-20] MEDS: CYCLOBENZAPRINE 10 MG TABLET PO PRN ×2 (08:59→20:20)
[2019-09-20] MEDS: SODIUM CHLORIDE 1 GM TABLET PO SCH ×3 (08:59→20:21)
[2019-09-20] MEDS: ENOXAPARIN 40 MG/0.4 ML SYRINGE SQ SCH (08:59)
[2019-09-20 09:17] LABS: Thyroid Stimulating Hormone 0.61 uIU/ml (0.27-5.01)
[2019-09-20] MEDS ORDERED: LABETALOL 5 MG/ML ML IV PRN (09:29)
--- NOTE | 2019-09-20 19:49 | Nephrology Consult Note ---
History of Present Illness - Reason for Consult Patient information: Note initiated : 09/20/19 at 7:47 pm Service Date, if different from initiated Date: [] Patient: Alina Lomeli 88 y/o F admitted on 09/17/19 for Shortness of breath. Chief Complaint: [] hyponatremia Requesting physician: Jabier Mendoza - Chief Complaint Shortness of breath and decompensated congestive heart failure - History of Present Illness As outlined in detail in the admitting H&P, the patient is an 88-year-old woman who developed progressive shortness of breath starting September 15 and ultimately presented to the emergency room with mild hypoxemia and congestive heart failure. She has a history of hyponatremia for which she is taking salt tablets which no doubt contributes to her congestive heart failure. Shown below as an example of her in the hospital serum chemistries along with TSH and cortisol which would rule out hypothyroidism or hypo-cortisol is him as a cause of her chronic hyponatremia. Selected Entries 09/20/19 16:01 09/20/19 17:01 09/20/19 18:01 Temperature 36.4 C 36.4 C Heart rate 75 78 90 Respiratory Rate 20 18 29 H Blood Pressure 135/55 136/70 158/75 Pulse Oximetry (%) 90 93 94 09/20/19 19:01 09/20/19 19:13 Temperature Heart rate 87 83 Respiratory Rate 20 26 H Blood Pressure 105/56 Pulse Oximetry (%) 92 This patient has been followed in the past by Dr. Perez for aortic stenosis with preserved LVEF. According to the patient this is her first hospital admission for decompensated congestive heart failure and as such if anything was going to be done to repair her stenotic aortic valve now is the time. The natural history of calcific aortic stenosis is progressive decline in cardiac function repeated episodes of decompensated congestive heart failure finally reaching end-stage congestive heart failure and . She should be seen by outpatient cardiology upon discharge to explore a TAVR procedure if indicated and desired by the patient. As for her hyponatremia it is longstanding and probably due to "appropriate ADH release" in the setting of aortic stenosis and congestive heart failure. She is not on any thiazide medication and for that matter she is not on any diuretic. GEETA inhibitors can sometimes cause worsening of hyponatremia but that does not seem to be at play here since she is on an angiotensin II receptor janelle. Now this that she is entered this phase of severe aortic stenosis with congestive heart failure it seems to me that continued salt tablet administration carries more risk than benefit. I explained that the treatment is fluid restriction to 1000 cc a day. To achieve this level of fluid restriction I would recommend using Nepro in place of water to swallow her pills so she is not wasting her thousand cc of fluid a day just trying to take her medications. As the Nepro was hyperosmolar it does not contribute to her hyponatremia and in fact does not need to be counted in her fluid restriction. In terms of her congestive heart failure she should be on beta-janelle to provide increased time empty the left ventricle against the stenotic aortic valve as long as her LVEF remains reasonable, ARB's are useful for the treatment of congestive heart failure. Diuretics should be used judiciously so as not overly volume contracted the patient can cause tachycardia and worsening cardiac output. Finally nitrates should be avoided for much the same reason of tachycardia and decreased cardiac output. Past History Past medical history: Medical History (Last Reviewed 03/09/18 @ 09:32 by Miriam Santamaria, BRAYDEN, PROPERTY DISPOSAL OFFICER) Macular degeneration (Chronic ~12/2015) Closed fracture of pelvis (Chronic) Hyponatremia (Acute) Multiple food allergies (Chronic) Compression fx, lumbar spine (Chronic) Compression fracture of body of thoracic vertebra (Chronic) Allergic rhinitis (Chronic) Hypertension (Chronic) Osteoporosis (Chronic 11/28/13) Right bundle branch block (Chronic) Heart murmur, systolic (Chronic 01/25/14) Mitral regurgitation (Chronic 02/12/14) Insomnia (Chronic) Fatigue (Chronic) Dry eye syndrome (Chronic) Closed compression fracture of body of first lumbar vertebra (Chronic 10/16/13) Basal cell carcinoma of skin of face (Chronic 01/26/12) Back pain (Chronic) Anemia (Chronic) Vitamin D deficiency (Chronic) Diarrhea (Resolved) Dizziness (Resolved) Fracture, pelvis closed (Resolved) Hematuria (Resolved 02/12/14) Sacroiliitis (Resolved) Weakness (Resolved) Weakness (Resolved) Past Surgical History (Last Reviewed 03/09/18 @ 09:32 by Mriiam Santamaria, BRAYDEN, PROPERTY DISPOSAL OFFICER) History of appendectomy (Resolved 08/13/05) History of cataract surgery (Resolved 05/26/05) History of colonoscopy (Resolved 08/07/06) History of eye surgery (Resolved) Status post LASIK surgery of both eyes (Resolved 03/02/13) Status post Mohs surgery (Resolved 01/26/12) Family History (Last Reviewed 03/09/18 @ 09:32 by Miriam Santamaria, BRAYDEN, PROPERTY DISPOSAL OFFICER) Aunt Malignant neoplasm of breast [id number] Malignant neoplasm of colon Unknown Family history of malignant neoplasm Hyperlipidemia Mother Cerebrovascular accident Carcinoma in situ of skin Sister Carcinoma in situ of skin Family history of arthritis Brother Family history of arthritis Carcinoma in situ of skin Social History (Last Updated 03/09/18 @ 10:57 by Miriam Santamaria, BRAYDEN, PROPERTY DISPOSAL OFFICER) No smoking history other than secondhand smoke exposure No alcohol use Ambulates with a cane Lives with family Medications and Allergies Home Medications Medication Instructions Recorded Confirmed Type peg 400-propylene glycol 0.4 %-0.3 1 drp OPHTHALMIC QDAY PRN ml 11/27/14 09/17/19 History % eye drops cranberry 400 mg capsule 400 mg PO TID cap 01/02/15 09/17/19 History Bifidobacterium infantis 1.5 4 mg PO QDAY 04/02/15 09/17/19 History billion cell capsule pedi nutrition,iron,lact-free 0.06 1 each PO BID #60 dose 04/02/15 09/17/19 Rx gram-1.5 kcal/mL oral liquid sodium chloride 1 gram tablet 1 tab PO BID tab 11/29/15 09/17/19 History vitamin B complex 1 tab-cap PO QDAY 02/28/16 09/17/19 History vit C 250 mg-E 200 unit-zinc 40 1 tab PO BID 06/15/16 09/17/19 History mg-copper 1 [id number] capsule calcium citrate 250 mg 2 tab PO TID 30 Days #180 tab 07/06/16 09/17/19 Rx calcium-vitamin D3 200 unit tablet denosumab 60 mg/mL subcutaneous 60 mg SUB-Q [id number] 11/30/16 09/17/19 History syringe magnesium oxide 400 mg PO QDAY #90 cap 09/01/17 09/17/19 Rx cyclobenzaprine 5 mg tablet 5 mg PO BID PRN #60 tab 03/28/18 09/17/19 Rx losartan 25 mg tablet 25 mg PO QDAY #30 tab 03/28/18 09/17/19 Rx fentanyl 12 mcg/hr transdermal 12 mcg TOPICAL Q72H #10 patch 04/06/18 09/17/19 Rx patch diphenhydrAMINE [Benadryl] 50 mg PO Q4HP PRN 09/17/19 09/17/19 History Allergies Allergy/AdvReac Type Severity Reaction Status Date / Time Amoxicillin [From Augmentin] Allergy Severe Swelling Verified 03/09/18 09:22 of Lip/Tongue/Throat clavulanic acid Allergy Severe Swelling Verified 03/09/18 09:22 [From Augmentin] of Lip/Tongue/Throat flaxseed Allergy Severe Swelling Verified 09/17/19 18:22 of Lip/Tongue/Throat pecan nut Allergy Severe Swelling Verified 03/09/18 09:22 of Lip/Tongue/Throat tree nut Allergy Severe Swelling Verified 09/17/19 18:22 of Lip/Tongue/Throat peanut Allergy Intermediate Rash Verified 09/17/19 09:08 polyester fibers Allergy Intermediate Rash Verified 03/09/18 09:22 wool Allergy Intermediate Rash Verified 03/09/18 09:22 Colwell And Derivatives Allergy Unknown Unknown Verified 09/17/19 09:08 sodium sulfate Allergy Unknown Unknown Verified 09/17/19 09:08 Sulfa (Sulfonamide Allergy Unknown Unknown Verified 09/17/19 09:08 Antibiotics) [SULFA (SULFONAMIDE ANTIBIOTICS)] carvedilol AdvReac Intermediate Hypotension Verified 03/09/18 09:22 morphine AdvReac Intermediate Other Verified 03/09/18 09:22 prednisone AdvReac Intermediate Dizziness Verified 09/17/19 18:22 tramadol AdvReac Intermediate Dizziness Verified 03/09/18 09:22 lisinopril AdvReac Mild Cough Verified 09/17/19 18:22 milk AdvReac Mild Unknown Verified 09/17/19 18:22 FOOD PRESERVATIVE Allergy Intermediate Swelling Uncoded 03/09/18 09:22 of Lip/Tongue/Throat Exam - Vital Signs Vital signs: Temp Pulse Resp BP Pulse Ox 36.4 C 88 26 H 105/56 93 09/20/19 18:01 09/20/19 14:00 09/20/19 19:13 09/20/19 19:01 09/20/19 19:13 - General Appearance General appearance: appears started age, chronically ill EENT: PERRL Neck: JVD, no carotid bruit (Delayed carotid upstroke) Respiratory: kyphosis Cardiology: mid-systolic murmur (Harsh 4 out of 6 systolic ejection murmur heard all over the precordium), no rub, no gallops, no edema, regular rhythm, normal S1, normal S2 Gastrointestinal: normoactive bowel sounds, no tenderness Integumentary: no rash, warm and dry, ecchymotic Neurologic: no focal deficit, no asterixis, reflexes 2+ and symmetric, CN 3-12 intact Results - Lab Results 09/19/19 08:06 09/20/19 05:10 Most recent lab results Calcium 8.1 mg/dl (8.6-10.4) L 09/20/19 05:10 Phosphorus 3.6 mg/dL (2.7-4.5) 09/20/19 05:10 Magnesium 2.3 mg/dL (1.6-2.5) 09/20/19 05:10 - Image Kidney/bladder ultrasound: other Assessment and Plan (1) Congestive heart failure with preserved left ventricular function, NYHA class 1 1. Fluid restrict to 1000 cc oral fluid intake per day not including nutritional supplement use to swallow her medications 2. Stop the salt tablets 3. Metoprolol succinate 25 mg daily 4. Furosemide 20 mg orally twice a day 5. Continue low-dose losartan temporally from the metoprolol 6. Follow-up with outpatient directional driller to see if she is candidate for TAVR Status: Acute Comment: Episode of decompensated congestive heart failure in the setting of severe aortic stenosis with preserved LVEF occurs late August 2019. At this point salt loading seems to be doing more harm than good and should be discontinued Treatment of congestive heart failure with aortic stenosis will involve beta- blockade, RAASI therapy, diuretics, fluid restrict, and avoidance of medications that could lead to her reflex tachycardia such as nitrates and dihydropyridine calcium channel blockers. (2) Hyponatremia 1. Stop salt supplementation as this is going to interfere with effective treatment of her congestive heart failure 2. I believe the cause to be increased ADH release in the setting of decreased cardiac output and congestive heart failure (appropriate ADH release) 3. Fluid restrict to 1000 cc a day orally 4. Swallow pills with a hyperosmolar nutritional supplement such as Suplena or Nepro 5. Thyroid iand adrenal function are adequate 6. Serial labs as an outpatient Status: Chronic Priority: Medium Comment: Etiology is chronic congestive heart failure with increased ADH release May have a component of "tea and toast" diet leading to inability to generate a dilute urine Salt loading will only worsen her congestive heart failure now that she has severe aortic stenosis which will only progress
[2019-09-20] MEDS: LOSARTAN 25 MG TABLET PO SCH (23:46)
[2019-09-21] MEDS: 0.9 % SODIUM CHLORIDE 10 ML SYRINGE IV SCH ×3 (05:25→21:03)
[2019-09-21] MEDS: ENOXAPARIN 40 MG/0.4 ML SYRINGE SQ SCH (08:23)
[2019-09-21] MEDS: METOPROLOL SUCCINATE 25 MG TAB.XL.24H PO SCH (08:23)
[2019-09-21] MEDS: FUROSEMIDE 20 MG TABLET PO SCH ×2 (08:23→16:32)
[2019-09-21] MEDS: fentaNYL 12 MCG PATCH TOPICAL SCH (12:12)
--- NOTE | 2019-09-21 14:17 | Internal Med Progress Note ---
Medical - PN: Subj Patient information: Note initiated : 09/21/19 at 2:15 pm Service Date, if different from initiated Date: [] Patient: Alina Lomeli a 88 y/o F admitted on 09/17/19 for Shortness of breath. Chief Complaint: [] Interval history: Ms. Lomeli is a 88 year old F Presents the ED with shortness of breath that started Wednesday, to have a history of shortness of breath but has increased over the weekend and continue to progress. She had oxygen saturations in the mid 80s on room air in the ED. She denies any fevers or chills. No chest pain, does have some chronic abdominal pain.. She does have a cough but this is chronic and dry in nature, sometimes with congestion from sinus drainage. In the ED she was evaluated found to be in acute heart failure. With hypoxia. Sodium was also low of which she is does have a history of. Patient states that she woke up feeling normal Wednesday morning but through the day developed shortness of breath. No exacerbating or relieving factors. No new cough. No chest pain. Denies any weight gain over edema in her feet. Denies any read previous heart history. She did miss her blood pressure medication losartan today. Complained of feeling lightheadedness and did have some nausea. She does have occasional diarrhea which is normal for her. She does take salt tabs for low sodium. 09/17 Good oxygen saturations on supplemental O2. Plan for echo today. Shortness of breath much improved from yesterday. Chronic cough. Little bit of a headache and some lightheadedness otherwise no other complaints. 09/18 Still requiring oxygen, was increased last night with the patient does say the oxygen had come off her nose for period of time. That negative fluid balance several liters. Echo is also pending. Patient has usual morning cough today. She denies shortness of breath. 09/19 Sodium remaining mid 20s. Patient on room air yesterday was placed on 1 L overnight for a while and now back on room air. Patient doing well. Echo showing severe aortic stenosis. Patient will need for close follow-up with cardiology, not sure if she is surgical candidate sounds like she might not want to go through that even if she was. 09/20 Does not have any new complaints. Denies fever, chills, nausea, or vomiting. Vital signs are stable He was not on home oxygen. In the hospital, she is on low oxygen at nights. PT eval for home oxygen. Creatinine 1.2 today Review of Systems: denies fever/chills/nausea/vomiting/chest or abdominal pain/diarrhea. Otherwise see above. - Constitutional Vitals: Vital Signs Temp Pulse Resp BP Pulse Ox 98.2 F 92 H 25 H 135/62 91 09/21/19 04:01 09/21/19 02:00 09/21/19 14:01 09/21/19 14:01 09/21/19 14:01 Period Temp Pulse Resp BP Sys/Meyer Pulse Ox Last 24 Hr 97.6 F-98.3 F 88-92 15-34 100-158/49-80 85-96 Intake and Output 09/21/19 09/21/19 09/21/19 05:59 13:59 21:59 Intake Total 300 120 Output Total 625 450 Balance -325 -330 Intake & Output: Intake & Output 09/21/19 09/21/19 09/21/19 05:59 13:59 21:59 Intake Total 300 120 Output Total 625 450 Balance -325 -330 Intake: Oral 300 120 Output: Void Amount 625 450 Other: Meal Dinner Lunch Percent of Meal Consumed 75% Urine Appearance Clear Clear Urine Color Bright Yellow Bright Yellow Urine Odor Normal - Additional findings Additional findings: General: Alert, Awake, No acute Distress Eyes/N/T: EOMI, , Head/Neck: neck supple, CV: RRR, 3/6 SM, Pulm: b/l basilar rales improved, no wheezing Abd: soft, nontender, +BS x4 Ext: no clubbing/cyanosis/edema Neuro: Alert, no focal deficits, moves all extremities, Skin: warm/dry Psych: normal Medical - PN: Obj Da - Labs CBC & Chem 7: 09/19/19 08:06 09/20/19 05:10 Labs: Abnormal Lab Results 09/20/19 09/19/19 09/19/19 05:10 08:06 08:06 Eos % (Auto) 7.6 H [place] # (Auto) 0.92 H Sodium 123 L 125 L Chloride 84 L 83 L BUN 41 H 32 H Creatinine 1.2 H 1.4 H Calcium 8.1 L 8.5 L C-Reactive Protein 3.0 H Meds: Medications Albuterol/Ipratropium (Duoneb) 3 ml NEB Q4HP PRN PRN Reason: Shortness Of Breath Cyclobenzaprine HCl (Flexeril) 5 mg PO BIDP PRN PRN Reason: muscle spasm Last Admin: 09/20/19 20:20 Dose: 5 mg Documented by: Enoxaparin Sodium (Lovenox) 40 mg SQ DAILY [facility] Last Admin: 09/21/19 08:23 Dose: 40 mg Documented by: Fentanyl (Duragesic) 12 mcg TOPICAL Q72H [facility] Last Admin: 09/21/19 12:12 Dose: 12 mcg Documented by: Furosemide (Lasix) 20 mg PO BIDD [facility] Last Admin: 09/21/19 08:23 Dose: 20 mg Documented by: Magnesium Sulfate (Magnesium Sulfate) 2 gm in 50 mls @ 50 mls/hr IV UD PRN PRN Reason: Magnesium </= 1.6 Last Infusion: 09/18/19 11:25 Dose: Infused Documented by: Labetalol HCl (Trandate) 0 mg IV Q2HP PRN PRN Reason: Hypertension Losartan Potassium (Cozaar) 12.5 mg PO QPM [facility] Last Admin: 09/20/19 23:46 Dose: Not Given Documented by: Metoprolol Succinate (Toprol Xl) 25 mg PO DAILY [facility] Last Admin: 09/21/19 08:23 Dose: 25 mg Documented by: Ondansetron HCl (Zofran) 4 mg IV Q4HP PRN PRN Reason: Nausea And Vomiting Polyethylene Glycol (Miralax) 17 gm PO DAILYP PRN PRN Reason: Constipation Potassium Chloride (Kdur) 40 meq PO UD PRN PRN Reason: Potassium < 3 Senna (Senokot) 2 tab PO DAILYP PRN PRN Reason: Constipation Sodium Chloride (Saline Flush) 10 ml IV Q8 [facility] Last Admin: 09/21/19 05:25 Dose: 10 ml Documented by: Medical - PN: A/P - Time Spent With Patient Total time spent is greater than 50% in coordination of care (as documented) at patient's floor/unit and/or counseling patient: - Narrative A/P Narrative: A: *Acute on chronic decompensated diastolic(per 2018 echo) CHF with Valvular dz(s moises ): -trop 0.05 2/2 above & follow-up lab wnl, no chest pain or ischemic changes on ekg -echo with good EF, severe , diastolic dysfxn -Stop the salt tablets -Metoprolol succinate 25 mg daily -Furosemide 20 mg orally twice a day -Continue low-dose losartan temporally from the metoprolol -Follow-up with outpatient bending roll operator to see if she is candidate for TAVR *Acute hypoxic respiratory failure: 2/2 above -on 1L while sleeping -She is not on home oxygen. RT home oxygen eval *Severe Aortic Stenosis: *Hyponatremia, acute on chronic siadh: -Discontinued salt tabs *Chronic pain: On fentanyl and Flexeril at home *HTN: On losartan * P: -IV Lasix held for now -Supplemental O2 prn -hold ARB until renal fxn improved, -free water fluid restrict to 1000ml/24hrs -Cortisol - 11.3 and TSH - 0.61 -f/u sodium -PT/OT -Follow-up with cardiology outpatient -ppx: Lovenox DNR Possibly discharge to son's home with home health tomorrow. Medical - PN: Qual - VTE Deep Vein Thrombosis/Pulmonary Embolism Present on Admission: No
--- NOTE | 2019-09-21 17:05 | Nephrology Progress Note ---
Subjective Patient information: Note initiated : 09/21/19 at 5:00 pm Service Date, if different from initiated Date: [] Patient: Alina Lomeli 88 y/o F admitted on 09/17/19 for Shortness of breath. Chief Complaint: [] Principal diagnosis: CHF with severe Aortic stenosis . Acute on chronic hyponatremia Interval history: Seen and evaluated on afternoon rounds. Plan is to optimize medical management of CHF her first episode in the setting of aortic stenosis. 1. Twice daily diuretics 2. Stop salt tablets 3. Oral fluid restriction 2000 cc a day along with use of a hyperosmolar tube feeding to swallow her medications to increase serum sodium 4. Metoprolol for rate control and ARB for afterload reduction being careful not to lower the blood pressure too much and an increasing the transvalvular gradient. 5. If her limitation of care permits, she should be considered for TVAR I explained to the patient that the natural history of untreated aortic stenosis is not good once you begin developing congestive heart failure which is the point we are currently at based on my review of the chart and the patient's history. The only reversible component I see would be to stop the salt loading. Her blood pressure is lower today so we will have to back down on the metoprolol and RAASI Ts. There was no chemistries drawn today we will repeat tomorrow Objective - Vital Signs Vital signs: Vital Signs Temp Pulse Resp BP Pulse Ox 09/21/19 16:06 18 90 09/21/19 16:01 36.8 C 15 108/51 92 09/21/19 15:01 25 H 109/63 09/21/19 14:01 25 H 135/62 91 09/21/19 13:01 34 H 143/77 95 09/21/19 12:01 16 128/60 95 09/21/19 11:01 17 116/78 95 09/21/19 10:01 15 100/58 96 09/21/19 09:02 23 H 133/80 09/21/19 08:01 21 126/56 89 L 09/21/19 07:01 22 125/64 92 09/21/19 06:04 18 90 09/21/19 06:01 18 124/60 92 09/21/19 05:01 24 H 114/59 85 L 09/21/19 04:33 20 89 L 09/21/19 04:01 36.8 C 19 102/56 92 09/21/19 03:02 16 92 09/21/19 03:01 18 116/54 93 09/21/19 02:55 23 H 92 09/21/19 02:01 18 114/49 91 09/21/19 02:00 92 H 22 92 09/21/19 01:22 30 H 92 09/21/19 01:01 22 108/50 94 09/21/19 00:23 21 93 09/21/19 00:01 36.8 C 18 106/64 94 09/20/19 23:12 24 H 95 09/20/19 23:01 22 121/54 96 09/20/19 22:35 23 H 89 L 09/20/19 22:01 20 119/51 90 09/20/19 21:14 22 91 09/20/19 21:01 24 H 128/58 92 09/20/19 20:01 36.4 C 19 115/66 91 09/20/19 20:00 88 19 91 09/20/19 19:13 26 H 93 09/20/19 19:01 20 105/56 92 09/20/19 18:01 36.4 C 29 H 158/75 94 09/20/19 17:01 18 136/70 93 Intake and Output 09/21/19 09/21/19 09/21/19 05:59 13:59 21:59 Intake Total 300 120 Output Total 625 450 350 Balance -325 -330 -350 Intake: Oral 300 120 Output: Void Amount 625 450 350 Other: Meal Dinner Lunch Percent of Meal Consumed 75% Urine Appearance Clear Clear Clear Urine Color Bright Yellow Bright Yellow Bright Yellow Urine Odor Normal Intake & Output: Intake & Output 09/21/19 09/21/19 09/21/19 05:59 13:59 21:59 Intake Total 300 120 Output Total 625 450 350 Balance -325 -330 -350 Intake: Oral 300 120 Output: Void Amount 625 450 350 Other: Meal Dinner Lunch Percent of Meal Consumed 75% Urine Appearance Clear Clear Clear Urine Color Bright Yellow Bright Yellow Bright Yellow Urine Odor Normal - General Appearance General appearance: appears started age, chronically ill EENT: ATNC, PERRL, mucous membranes moist Neck: no JVD, no carotid bruit (diminished upstroke) Cardiology: holosystolic murmur (3/6 SUREKHA all over precordium), no rub, no gallop s, no edema, regular rate, regular rhythm, normal S1 Gastrointestinal: normoactive bowel sounds, no tenderness, no guarding, no organomegaly Neurologic: no asterixis, alert and oriented x3 Musculoskeletal: no deformities, no cyanosis, no clubbing Psychiatric: mood/affect appropriate - Lab 09/19/19 08:06 09/20/19 05:10 Most recent lab results Calcium 8.1 mg/dl (8.6-10.4) L 09/20/19 05:10 Phosphorus 3.6 mg/dL (2.7-4.5) 09/20/19 05:10 Magnesium 2.3 mg/dL (1.6-2.5) 09/20/19 05:10 Assessment and Plan (1) Congestive heart failure with preserved left ventricular function, NYHA class 1 1. Decrease ARB dose to 12.5 mg and continue metoprolol and furosemide Status: Acute Priority: High Comment: Episode of decompensated congestive heart failure in the setting of severe aortic stenosis with preserved LVEF occurs late August 2019. At this point salt loading seems to be doing more harm than good and should be discontinued Treatment of congestive heart failure with aortic stenosis will involve beta- blockade, RAASI therapy, diuretics, fluid restrict, and avoidance of medications that could lead to her reflex tachycardia such as nitrates and dihydropyridine calcium channel blockers. (2) Hyponatremia 1. Stop salt tabs due to CHF 2. ARB, B-Ashlie and lasic as tolerated by af 3. repeat CXR before discharge Status: Chronic Priority: Medium Comment: Etiology is chronic congestive heart failure with increased ADH release May have a component of "tea and toast" diet leading to inability to generate a dilute urine Salt loading will only worsen her congestive heart failure now that she has severe aortic stenosis which will only progress
[2019-09-21] MEDS: LOSARTAN 25 MG TABLET PO SCH (21:03)
[2019-09-21] MEDS: CYCLOBENZAPRINE 10 MG TABLET PO PRN (21:03)
[2019-09-22] MEDS: 0.9 % SODIUM CHLORIDE 10 ML SYRINGE IV SCH (05:42)
[2019-09-22 06:45] LABS: Basophils # (Auto) 0.06 K/mcL (0.00-0.30); Basophils % (Auto) 0.6 % (0.0-2.0); Eosinophils # (Auto) 0.58 K/mcL (0.00-0.70); Granulocytes % (Auto) 58.5 % (38.0-78.0); Hematocrit 33.8 % (34.1-44.9); Hemoglobin 11.2 g/dL (11.2-15.7); Lymphocytes # (Auto) 2.17 K/mcL (1.50-4.80); Lymphocytes % (Auto) 22.3 % (15.5-49.0); Mean Cell Volume 88.3 fL (80.0-100.0); Mean Corpuscular HGB Conc 33.1 g/dL (31.0-36.0); Mean Platelet Volume 9.4 fL (7.4-10.4); Monocytes # (Auto) 1.22 K/mcL (0.10-0.90); Monocytes % (Auto) 12.6 % (1.0-12.0); Platelet Count 174 K/mcL (140-440); RBC 3.83 M/mcL (3.59-5.38); Red Cell Distribution Width 12.4 % (11.5-14.5); WBC 9.7 K/mcL (4.50-11.00)
--- NOTE | 2019-09-22 08:01 | XRay Report ---
HISTORY: Short of breath, follow-up congestive heart failure FINDINGS: The widespread infiltrates seen throughout both lungs on prior chest x-rays from 09/16/22 09/19/19 Nearly completely resolved. 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 Lungs are slightly hyperinflated. The heart size is normal. Pulmonary vessels are difficult to evaluate due to the superimposed pulmonary fibrosis. No adenopathy is detected. There is minor blunting of the right costophrenic sulcus. Numerous moderate compression fractures are present in the mid and upper thoracic spine due to underlying osteoporosis. There is also moderate compression fracture in the mid lumbar spine. These are old and have remained stable since 2016. IMPRESSION: Near complete resolution of the pneumonia/congestive heart failure with underlying moderate pulmonary fibrosis Interpreted and Authenticated by: Vihs Ortiz 09/22/19
[2019-09-22 08:14] LABS: proBNP 882.5 pg/ml (0-450)
[2019-09-22 08:26] LABS: ALT/SGPT 15 U/l (0-40); AST/SGOT 19 U/l (0-37); Albumin 3.6 gm/dL (3.2-5.2); Albumin/Globulin Ratio 1.1 (1.0-2.3); Alkaline Phosphatase 59 U/L (39-117); Bilirubin,Total 0.4 mg/dL (0.0-1.0); Blood Urea Nitrogen 38 mg/dl (8-23); Calcium 8.4 mg/dl (8.6-10.4); Carbon Dioxide 23 mmol/L (22-30); Globulin 3.4 gm/dL (2.2-3.7); Glomerular Filtration Rate 51; Glucose 94 mg/dL (70-105)
[2019-09-22 08:29] LABS: Chloride 91 mmol/L (96-108)
[2019-09-22] MEDS ORDERED: FUROSEMIDE 20 MG/2 ML VIAL IV ONE (09:33)
[2019-09-22] MEDS: ENOXAPARIN 40 MG/0.4 ML SYRINGE SQ SCH (09:36)
[2019-09-22] MEDS: FUROSEMIDE 20 MG TABLET PO SCH (09:41)
[2019-09-22] MEDS: METOPROLOL SUCCINATE 25 MG TAB.XL.24H PO SCH (11:30)
--- NOTE | 2019-09-22 11:45 | Discharge Summary ---
Medical - DS: Prov Patient information: Note initiated : 09/22/19 at 11:42 am Service Date, if different from initiated Date: [] Patient: Alina Lomeli 88 y/o F admitted on 09/17/19 for Shortness of breath. Chief Complaint: [] Referred to H&P by Jabier Tillman on 09/17/19 Ms. Lomeli is a 88 year old F Presents the ED with shortness of breath that started Wednesday, to have a history of shortness of breath but has increased over the weekend and continue to progress. She had oxygen saturations in the mid 80s on room air in the ED. She denies any fevers or chills. No chest pain, does have some chronic abdominal pain.. She does have a cough but this is chronic and dry in nature, sometimes with congestion from sinus drainage. In the ED she was evaluated found to be in acute heart failure. With hypoxia. Sodium was also low of which she is does have a history of. Patient states that she woke up feeling normal Wednesday morning but through the day developed shortness of breath. No exacerbating or relieving factors. No new cough. No chest pain. Denies any weight gain over edema in her feet. Denies any read previous heart history. She did miss her blood pressure medication losartan today. Complained of feeling lightheadedness and did have some nausea. She does have occasional diarrhea which is normal for her. She does take salt tabs for low sodium. Date of admission: 09/17/19 17:45 Discharge date: 09/22/19 Primary care physician: Miriam Santamaria Consults: 09/17/19 15:57 Consult to Physician [CONS] Stat Comment: Consulting Provider: Jabier Mendoza Reason For Exam: Physician to Consult 09/20/19 10:06 Consult to Physician [CONS] Routine Comment: hyponatremia Consulting Provider: Percy Heard Reason For Exam: Physician to Consult Medical - DS: Meds - Discharge Medications Prescriptions: Potassium Chloride [Kdur] 10 meq PO [facility] #15 tab Transmission Status: Pending to [facility] Furosemide [Lasix] 20 mg PO DAILY #14 tab Transmission Status: Pending to [facility] Metoprolol Succinate [Toprol Xl] 25 mg PO DAILY #30 tab.xl.24h Transmission Status: Pending to [facility] Active and Home Medications: Home Medications peg 400-propylene glycol 0.4 %-0.3 % eye drops 1 drp OPHTHALMIC QDAY PRN ml 11/27/14 [History Confirmed 09/17/19 Last Taken 08/28/15 1 DROP] cranberry 400 mg capsule 400 mg PO TID cap 01/02/15 [History Confirmed 09/17/19 Last Taken 08/27/15 400 MG.] Bifidobacterium infantis 1.5 billion cell capsule 4 mg PO QDAY 04/02/15 [History Confirmed 09/17/19 Last Taken Unknown] pedi nutrition,iron,lact-free 0.06 gram-1.5 kcal/mL oral liquid 1 each PO BID #60 dose 04/02/15 [Rx Confirmed 09/17/19 Last Taken Unknown] sodium chloride 1 gram tablet 1 tab PO BID tab 11/29/15 [History Confirmed 09/17/19 Last Taken Unknown] vitamin B complex 1 tab-cap PO QDAY 02/28/16 [History Confirmed 09/17/19 Last Taken Unknown] vit C 250 mg-E 200 unit-zinc 40 mg-copper 1 [id number] capsule 1 tab PO BID 06/15/16 [History Confirmed 09/17/19 Last Taken Unknown] calcium citrate 250 mg calcium-vitamin D3 200 unit tablet 2 tab PO TID 30 Days #180 tab 07/06/16 [Rx Confirmed 09/17/19 Last Taken Unknown] denosumab 60 mg/mL subcutaneous syringe 60 mg SUB-Q [id number] 11/30/16 [History Confirmed 09/17/19 Last Taken Unknown] magnesium oxide 400 mg PO QDAY #90 cap 09/01/17 [Rx Confirmed 09/17/19 Last Taken Unknown] cyclobenzaprine 5 mg tablet 5 mg PO BID PRN #60 tab 03/28/18 [Rx Confirmed 09/17/19 Last Taken Unknown] losartan 25 mg tablet 25 mg PO QDAY #30 tab 03/28/18 [Rx Confirmed 09/17/19 Last Taken Unknown] fentanyl 12 mcg/hr transdermal patch 12 mcg TOPICAL Q72H #10 patch 04/06/18 [Rx Confirmed 09/17/19 Last Taken 09/15/19 08:00] diphenhydrAMINE [Benadryl] 50 mg PO Q4HP PRN 09/17/19 [History Confirmed 09/17/19 Last Taken Unknown] Medical - DS: Hosp Hospital Course: *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 -She is not on home oxygen. RT home oxygen eval *Severe Aortic Stenosis: *Hyponatremia, acute on chronic siadh: -Discontinued salt tabs -repeat electrolytes in 3 days and weekly after discharge *Chronic pain: On fentanyl and Flexeril at home *HTN: On losartan and metoprolol Interval history: Ms. Lomeli is a 88 year old F Presents the ED with shortness of breath that started Wednesday, to have a history of shortness of breath but has increased over the weekend and continue to progress. She had oxygen saturations in the mid 80s on room air in the ED. She denies any fevers or chills. No chest pain, does have some chronic abdominal pain.. She does have a cough but this is chronic and dry in nature, sometimes with congestion from sinus drainage. In the ED she was evaluated found to be in acute heart failure. With hypoxia. Sodium was also low of which she is does have a history of. Patient states that she woke up feeling normal Wednesday morning but through the day developed shortness of breath. No exacerbating or relieving factors. No new cough. No chest pain. Denies any weight gain over edema in her feet. Denies any read previous heart history. She did miss her blood pressure medication losartan today. Complained of feeling lightheadedness and did have some nausea. She does have occasional diarrhea which is normal for her. She does take salt tabs for low sodium. 09/17 Good oxygen saturations on supplemental O2. Plan for echo today. Shortness of breath much improved from yesterday. Chronic cough. Little bit of a headache and some lightheadedness otherwise no other complaints. 09/18 Still requiring oxygen, was increased last night with the patient does say the oxygen had come off her nose for period of time. That negative fluid balance several liters. Echo is also pending. Patient has usual morning cough today. She denies shortness of breath. 09/19 Sodium remaining mid 20s. Patient on room air yesterday was placed on 1 L overnight for a while and now back on room air. Patient doing well. Echo showing severe aortic stenosis. Patient will need for close follow-up with cardiology, not sure if she is surgical candidate sounds like she might not want to go through that even if she was. 09/20 Does not have any new complaints. Denies fever, chills, nausea, or vomiting. Vital signs are stable He was not on home oxygen. In the hospital, she is on low oxygen at nights. PT eval for home oxygen. Creatinine 1.2 today 09/21 Today patient feels fine. Does not have any new complaints. Denies headache, dizziness, chest pain, abdominal pain, fever, chills, nausea, vomiting, or dysuria. She cannot wait to go home. Vital signs are stable. She needs oxygen at night. Home oxygen was arranged. Sodium 129. BNP 882 today which was 2460 on admission. She will be discharged home with home health. She needs to see PCP and core baker and repeat electrolytes and renal function in 3 days and weekly a fterwards. Call PCP for medical issues. Discharge diagnosis: Acute on chronic decompensated diastolic CHF - Time Spent with Patient Total time spent providing and/or coordinating discharge services: Greater than 30 minutes Medical - DS: Exam - Constitutional Vitals: Vital Signs Temp Pulse Pulse Resp BP Pulse Ox 09/22/19 10:15 127/67 09/22/19 04:16 19 09/22/19 04:01 97.8 F 27 H 110/48 86 L 09/22/19 01:18 19 09/22/19 00:40 92 09/22/19 00:01 98.7 F 20 102/52 92 09/21/19 21:35 21 09/21/19 20:01 99.0 F 20 126/55 88 L 09/21/19 20:00 81 20 09/21/19 19:01 21 115/52 87 L 09/21/19 18:58 90 09/21/19 18:24 85 88 L 09/21/19 18:22 90 09/21/19 18:21 81 L 09/21/19 18:13 18 112/56 09/21/19 18:00 20 112/56 94 09/21/19 17:08 20 103/50 09/21/19 17:05 25 H 103/50 92 09/21/19 16:06 18 90 09/21/19 16:01 98.3 F 15 108/51 92 09/21/19 15:01 25 H 109/63 09/21/19 14:01 25 H 135/62 91 09/21/19 13:01 34 H 143/77 95 09/21/19 12:01 16 128/60 95 Intake and Output 09/21/19 09/22/19 09/22/19 21:59 05:59 13:59 Intake Total 140 120 Output Total 600 350 350 Balance -460 -350 -230 Intake: Oral 140 120 Output: Void Amount 600 350 350 Other: Meal Dinner Breakfast Percent of Meal Consumed 25% 100% Feeding Ability Assist with Tray Set Up Urine Appearance Clear Clear Clear Urine Color Straw Straw Bright Yellow Urine Odor Strong Strong # Bowel Movements 0 Weight 66.587 kg - Other Additional findings: General: Alert, Awake, No acute Distress Eyes/N/T: EOMI, , Head/Neck: neck supple, CV: RRR, 3/6 SM, Pulm: b/l basilar rales significantly improved, no wheezing Abd: soft, nontender, +BS x4 Ext: no clubbing/cyanosis/edema Neuro: Alert, no focal deficits, moves all extremities, Skin: warm/dry Psych: normal Medical - DS: Data Labs on day of discharge: Labs from last 24 hours 09/22/19 09/22/19 05:10 05:10 WBC 9.7 RBC 3.83 Hgb 11.2 Hct 33.8 L MCV 88.3 MCH 29.2 MCHC 33.1 RDW 12.4 Plt Count 174 MPV 9.4 Gran % 58.5 Lymph % (Auto) 22.3 [place] % (Auto) 12.6 H Eos % (Auto) 6.0 Baso % (Auto) 0.6 Gran # 5.68 Lymph # (Auto) 2.17 [place] # (Auto) 1.22 H Eos # (Auto) 0.58 Baso # (Auto) 0.06 Sodium 129 L Potassium 4.5 Chloride 91 L Carbon Dioxide 23 Anion Gap 15.0 BUN 38 H Creatinine 1.0 GFR Calculation 51 Glucose 94 Calcium 8.4 L Total Bilirubin 0.4 AST 19 ALT 15 Alkaline Phosphatase 59 NT-Pro-B Natriuret Pep 882.5 H Total Protein 7.0 Albumin 3.6 Globulin 3.4 Albumin/Globulin Ratio 1.1 Medical - DS: A/P - Patient/Caregiver Discharge Instructions Activity: increase activity as tolerated Diet: Regular Diet Additional Instructions: Home Health and Home oxygen has been set up through [employer], they will meet you at home at discharge. The number is if you need to contact them. Wear your oxygen at bed time, [employer] will be your oxygen supplier Do not drink more than 1 quart of fluid daily due to your heart failure. Other Amb Orders: Home Oxygen Order Location: None Selected - Follow up Plan Follow up with: Miriam Santamaria DNP, CLAIMS SUPPORT SPECIALIST [Primary Care Provider] - 09/29/19 10:30 am Ottoniel Harper MD [Physician] - 10/24/19 2:20 pm Percy Heard MD [Physician] - 10/06/19 9:15 am Disposition: Home Health Service Care Plan Goals: This discharge packet is provided to you to help keep you informed about your care. We want to ensure you get everything you need when you go home. You will also be receiving a call from us in a few days to follow up with you and see how you are doing since your discharge. This gives us a chance to listen to any concerns you maybe experiencing since you were discharged or any additional needs you may have, as well as providing us feedback on your care experience. We strive to always provide excellent care and thank you for your feedback and for choosing [facility]. Prognosis: Fair Rehab Potential: Fair Medical - DS: Qual - VTE Deep Vein Thrombosis/Pulmonary Embolism Present on Admission: No
== END 2019-09-22 13:42 | disposition home health service (06) | DRG 291 ==
LOC: ED 09:03 → ICU 17:45
PROVIDERS: ADMIT Internal Medicine; ATTEND Internal Medicine